=== PATIENT | male | born 1965 | race Caucasian/White ===

== ENCOUNTER → 2019-08-22 09:07 | Outpatient (BNVA) | payer OTHER, SELFPAY | PROVIDERS: PCP Family Medicine; Referring Provider Family Medicine; Visit Provider Specialist | DX: Z96.641 Presence of right artificial hip joint (principal); M25.552 Pain in left hip; M25.551 Pain in right hip | CPT/HCPCS: 73522 ==

== ENCOUNTER 2019-08-30 07:34 | Outpatient (REF) | payer OTHER, SELFPAY ==
[2019-08-30 08:26] LABS: Chol HDL Ratio 4.36 mg/dL (1.0-5.00); Cholesterol 157 mg/dL (0-200); Glucose 221 mg/dL (74-109); HDL Cholesterol 36 mg/dL (60-100); LDL Cholesterol Calculated 89 mg/dL (50-129); LDL HDL Ratio 2.47 RATIO (0.00-3.22); Triglycerides 161 mg/dL (0-150)
[2019-08-30 08:27] LABS: Estmated Average Glucose 283; Hemoglobin A1C 11.5 % (4.0-6.0)
[2019-08-30 19:06] LABS: Anion Gap 14.7 (5-19); Blood Urea Nitrogen 13 mg/dL (6-20); Calcium 9.7 mg/Dl (8.6-10.0); Carbon Dioxide 28 mmol/L (22-29); Chloride 102 mmol/L (98-107); Glomerular Filtration Rate 141.5 mL/min (90-130); Glucose 221 mg/dL (74-109); Potassium 4.7 mmol/L (3.5-5.1); Sodium 140 mmol/L (136-145)
== END 2019-08-30 07:35 | disposition home or self-care (01) ==
LOC: LAB 07:34
PROVIDERS: Family Provider Family Medicine; PCP Family Medicine; Visit Provider Family Medicine
DX: E11.65 Type 2 diabetes mellitus with hyperglycemia (principal)
CPT/HCPCS: 80048; 80061; 82947; 83036

== ENCOUNTER 2019-09-02 08:02 | Outpatient (CLI) | payer OTHER, SELFPAY ==
--- NOTE | 2019-09-02 08:00 | MR_ITS ---
WS: [id number] MRI LEFT hip, noncontrast. MRIs performed of the pelvis and hips with attention to the LEFT hip. HISTORY: LEFT hip pain. COMPARISON: 08/22/2019. Patient is status post RIGHT hip arthroplasty which is causing a moderate amount of metallic artifact through the RIGHT pelvis. Seen on the sagittal T1-weighted sequences of the LEFT hip is a linear area of marked hypointensity j ust beneath the cortical surface of the hip with a small amount of marrow edema along the surface of the femoral head. There is no displacement or fragmentation. Irregularity along the cortical surface of the femoral head. 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 Mild narrowing of the joint space. The labrum is intact. No significant joint effusion. No soft tissue around the hip. No acute fracture. Mild atrophy and fatty replacement of the muscles a round the RIGHT hip. MR/MR hip LT wo con* [id number] IMPRESSION: 1. Osteonecrosis LEFT femoral head. Moderate osteonecrosis with mild early fla ttening of the femoral head. 2. No loose fragment is identified. 3. Mild narrowing of the LEFT hip joint from osteoarthritis. 4. Prior RIGHT hip arthroplasty.
== END 2019-09-02 08:03 | disposition home or self-care (01) ==
LOC: RADSHAW 08:02
PROVIDERS: Family Provider Family Medicine; PCP Family Medicine; Visit Provider Specialist
DX: M87.852 Other osteonecrosis, left femur (principal); M16.12 Unilateral primary osteoarthritis, left hip; M25.552 Pain in left hip; Z96.642 Presence of left artificial hip joint
CPT/HCPCS: 73721

== ENCOUNTER 2019-09-19 08:56 | Outpatient (CLI) | payer OTHER, SELFPAY ==
--- NOTE | 2019-09-19 09:07 | NM_ITS ---
WS: [id number] NUCLEAR MEDICINE BONE SCAN Radiopharmaceutical: 26.4 Tc-99m MDP mCi IV Injection site: Right antecubital Postinjection imaging delay: 2 hr CLINICAL INFORMATION: HIP PAIN/ATTN:L HIP COMPARISON: MRI left hip September 02, 2019 FINDINGS: Recent MRI left hip reviewed Bone lesions: Postoperative changes right LUZ MARIA. Slightly decreased blood flow and blood pool correspon ding to the left femoral articular surface at the femoral head. Overall decreased uptake in the left femoral articular surface consistent with avascular necrosis as seen on the MRI. No significant hyper emia. Prior postoperative changes right LUZ MARIA. Normal blood flow and blood pool images. No periarticular upta ke to indicate infection or loosening. Right LUZ MARIA has a normal appearance. Normal activity in the righ t femoral shaft. Soft tissue contours: Normal. Kidneys: Normal. Other findings: Incidental degenerative type uptake involving both AC joints and both knees bilateral ly. Small amount of degenerative uptake involving the right ankle. NM/NM bone 3 phase 79177 IMPRESSION: 1. Postoperative changes right LUZ MARIA. No evidence of hyperemia or periarticular uptake to indicate infection or loosening. 2. Overall decreased blood flow and blood pool to the left femoral head articu lar surface consistent with avascular necrosis compatible with the recent MRI. 3. Incidental degenerative uptake described above.
== END 2019-09-19 08:57 | disposition home or self-care (01) ==
LOC: RAD 08:59
PROVIDERS: Family Provider Family Medicine; PCP Family Medicine; Visit Provider Specialist
DX: Z96.642 Presence of left artificial hip joint (principal)
CPT/HCPCS: 78315; A9561

== ENCOUNTER 2019-10-18 13:20 | Inpatient (IN) | payer OTHER, SELFPAY ==
[2019-10-12 08:27] VITALS: BMI 32.8
--- NOTE | 2019-10-12 08:54 | ANES.PREANE2 ---
Pre-Anesthetic Assessment Pre-Anesthetic Assessment: Height/Weight: Height 1.83 m Weight 109.769 kg Preop Diagnosis: AVN left hip Proposed Procedure: Operation Date: 10/18/19 07:00 Proposed Procedures p Total Hip Arthroplasty 33570 M87.052 M25.551(Left) - Jovita Luong MD Familial anesthetic complications: PONV Social: Social History: No alcohol and No tobacco Exam: Pre-Anes Outpt Exam: alert, oriented x 3, clear to auscultation bilaterally and regular rate & rhythm Airway: Cervical ROM: WNL MP: 2 Dentition: Chipped Pulmonary: Pulmonary: None reported CV/HEM: CV/HEM: HTN : : None reported Hepatic: Hepatic: None reported GI: GI: None reported Metabolic: Metabolic: DM and Morbid obesity Musc/skel: Comments: avascular necrosis of hip Neuropsych: Neuropsych: None reported Anesthetic Plan: ASA status: 3 Anesthesia: General Risk of > 500 ml blood loss (7ml/kg in children): No PFSH Anesthesia PFSH: Social History Smoking and tobacco status: never smoked Alcohol intake: never Data Anesthesia Cardiac Studies: No Data to Display
[2019-10-12 09:01] LABS: Add Urine Microscopic? NO
[2019-10-12 09:09] LABS: Basophils % 0.7 %; Eosinophils # 0.1 10^3/uL (0.0-0.8); Eosinophils % 1.3 %; Hematocrit 42.9 % (42.0-52.0); Hemoglobin 14.6 g/dL (11.7-16.6); Lymphocytes # 2.1 10^3/uL (0.8-4.8); Lymphocytes % 34.8 %; Mean Corpuscular Hemoglobin 27.6 pg (28.0-34.0); Mean Corpuscular Volume 81.1 fL (80-94); Mean Platelet Volume 10.3 fL (7.4-10.4); Monocytes # 0.4 10^3/uL (0.2-0.9); Monocytes % 7.2 %; Neutrophils # 3.4 10^3/uL (1.8-7.7); Neutrophils % 55.3 %; Nucleated Red Blood Cells % 0 %; Platelet Count 201 10^3/cmm (130-400); Red Blood Count 5.29 10^6/uL (4.1-5.3); Red Cell Distribution Width 11.8 % (12.1-15.1); White Blood Count 6.1 10^3/uL (4.0-10.0)
[2019-10-12 09:18] LABS: Alanine Aminotransferase 37 U/L (0-41); Albumin Level 4.4 g/dL (3.5-5.2); Alkaline Phosphatase 105 IU/L (40-130); Anion Gap 16.5 (5-19); Aspartate Amino Transferase 20 U/L (0-40); Blood Urea Nitrogen 16 mg/dL (6-20); Calcium 9.7 mg/dL (8.5-10.5); Carbon Dioxide 23 mmol/L (22-29); Chloride 102 mmol/L (98-107); Globulin 2.3 g/dL (1.3-4.6); Glomerular Filtration Rate 101.5 mL/min (90-130); Glucose 369 mg/dL (65-115); Potassium 4.5 mmol/L (3.5-5.1); Sodium 137 mmol/L (136-145); Total Bilirubin 0.7 mg/dL (0.15-1.2); Total Protein 6.7 g/dL (6.6-8.7)
[2019-10-12 09:35] LABS: Bilirubin Urine Neg (NEGATIVE); Blood Urine Neg (Negative); Glucose Urine UA 4+ (Normal); Ketones Urine Negative (Negative); Leukocyte Esterase Urine Negative (Negative); Nitrate Urine Negative (Negative); Protein Urine Neg (Negative); Urine Appearance Clear (CLEAR); Urine Color Yellow (Yellow); Urobilinogen Urine Norm (Negative); pH Urine 5 (5-7)
[2019-10-18] VITALS (23 sets, daily range): BP systolic 125–176; BP diastolic 70–93; PULSE 87–114; RESP 12–22; TEMP 36.1–37; O2SAT 92–99
--- NOTE | 2019-10-18 08:59 | ECG_ITS ---
Measurements Intervals Melissa Rate: 93 P: 32 IN: 154 QRS: -33 QRSD: 150 T: 31 QT: 385 QTc: 479 SINUS RHYTHM MARKED LEFT AXIS DEVIATION [QRS AXIS < -30] RIGHT BUNDLE BRANCH BLOCK [120+ ms QRS DURATION, UPRIGHT V1, 40+ ms S IN I/aVL/V4/V5/V6] No previous ECG available for comparison Electronically Signed On 10-19-2019 9:05:49 CDT by Conor Sanders M.D. [email or web address]
--- NOTE | 2019-10-18 09:02 | P.HPUD_ITS ---
Surgery/Procedure H&P Update DATE OF PROCEDURE: October 18, 2019 DATE H&P PERFORMED: 10/10/19 H&P UPDATE INFORMATION: I have reviewed H&P completed within last 30 days, No changes to prior documentation and H&P is in [facility] EMR on date indicated PREOP DIAGNOSIS: AVN left hip PLANNED PROCEDURE: Operation Date: 10/18/19 10:10 Proposed Procedures p Left Total Hip Arthroplasty 31550 M87.052 M25.551(Left) - Jovita Luong MD
--- NOTE | 2019-10-18 09:07 | ANES.PREANE2 ---
Pre-Anesthetic Assessment Pre-Anesthetic Assessment: Height/Weight: Height 1.83 m Weight 109.769 kg Preop Diagnosis: AVN left hip Proposed Procedure: Operation Date: 10/18/19 10:10 Proposed Procedures p Total Hip Arthroplasty 95195 M87.052 M25.551(Left) - Jovita Luong MD Familial anesthetic complications: None Was Beta Deyanira taken within 24 hours: N/A Last intake: NPO > 8 hrs (0000) no meds this morning Social: Social History: No alcohol and No tobacco Exam: Pre-Anes Outpt Exam: alert, oriented x 3, clear to auscultation bilaterally and regular rate & rhythm Airway: Cervical ROM: WNL MP: 3 Dentition: Chipped Pulmonary: Pulmonary: Sleep apnea (bipap) CV/HEM: CV/HEM: HTN : : None reported Hepatic: Hepatic: None reported GI: GI: None reported Metabolic: Metabolic: DM Musc/skel: Musc/skel: OA/DJD Comments: avascular necrosis - of multiple joints; unknown etiology, possibly due to steroids Neuropsych: Neuropsych: None reported Anesthetic Plan: ASA status: 2 Anesthesia: General Risk of > 500 ml blood loss (7ml/kg in children): No PFSH Anesthesia PFSH: Social History Smoking and tobacco status: never smoked Alcohol intake: never Data Anesthesia CBC & Chem 7: 10/12/19 08:46 10/12/19 08:46 Cardiac Studies: No Data to Display
[2019-10-18 09:27] LABS: Glucose Point of Care 238 mg/dL (70-110)
[2019-10-18] MEDS: vancomycin 1,000 MG in sodium chloride 0.9% 250 ML 250 MG IV ×2 (09:30→17:38)
[2019-10-18] MEDS: CELEcoxib 200 mg Capsule 400 MG PO (10:08)
[2019-10-18] MEDS: sodium chloride 0.9% 1,000 ML 30 ML IV (10:09)
[2019-10-18 10:11] LABS: Anion Gap 15.2 (5-19); Blood Urea Nitrogen 15 mg/dL (6-20); Calcium 9.3 mg/dL (8.5-10.5); Carbon Dioxide 21 mmol/L (22-29); Chloride 107 mmol/L (98-107); Glomerular Filtration Rate 141.5 mL/min (90-130); Glucose 261 mg/dL (65-115); Osmolality Calculated 293 mOsm/kg (285-295); Potassium 4.2 mmol/L (3.5-5.1); Sodium 139 mmol/L (136-145)
[2019-10-18] MEDS: vancomycin 1,000 MG SDV 1000 MG IRRIGATION (10:53)
[2019-10-18] MEDS: vancomycin 1,000 MG SDV 1000 MG XX (10:53)
--- NOTE | 2019-10-18 12:02 | SUR.OPER ---
5192-Family called in OPS waiting area given update on patient and progress of surgery
--- NOTE | 2019-10-18 13:11 | SUR.PHASEI ---
1308 PATIENT TO PACU AT THIS TIME FROM OR. RR EVEN AND UNLABORED, PLACED ON SIMPLE MASK AT 8L, SPO2 98%. DRESSING TO LEFT HIP, CDI. ABD PILLOW IN PLACE, LEFT PEDAL PULSE PRESENT AND MARKED. LANZA CATH DRAINING CLEAR, YELLOW URINE,SECURED TO LEFT LEG.
--- NOTE | 2019-10-18 13:34 | XR_ITS ---
WS: [id number] Pelvis, AP view, 10/18/2019 Clinical Data: Status post left total hip arthroplasty Comparison: AP pelvis and hips, 08/22/2019 Findings: A left hip arthroplasty has been performed. The components are in good position. The right hip arthro plasty remains unchanged. XR/XR pelvis 1-2V* [id number] Impression: 1. New left hip arthroplasty. 2. No change in right hip arthroplasty.
--- NOTE | 2019-10-18 14:30 | SUR.PHASEI ---
1416 PATIENT TO MED SURG AT THIS TIME. RR EVEN AND UNLABORED. A/OX3, DROWSY. DRESSING TO LEFT HIM, CDI, ABD PILLOW IN PLACE. LANZA CATH IN PLACE. TOLERATING ICE CHIPS.
--- NOTE | 2019-10-18 15:06 | P.OP_ITS ---
Operative Report Date of procedure: October 18, 2019 Pre-op Diagnosis: AVN left hip Post-op diagnosis: same Procedure Done: Left total hip arthroplasty utilizing the following components: The Nato total hip system with a Tritanium II hemispherical solid back shell size 58 with an F alpha code, an MDM cementless liner size 46 mm by F alpha code, and Accolade II 127? neck angle hip stem size 6 x 35 mm neck length with a 28 mm ceramic +0 mm femoral head and a congregational MDM X3 insert size 28 mm inner diameter by 46F. Specimens removed/disposition: Femoral head sent to pathology Pathology: other (Femoral head for confirmation of AVN) Surgeon: Jovita Luong Skimmer Scoop Operator: [facility] OR technicians Anesthesia: General (Intubated, ASA 2) Estimated blood loss (mL): 350 IV fluids (mL): 1,000 Urine output (mL): 400 Complications: None Condition: stable Disposition: PACU (Then to floor after recovery) Brief History: This 54-year-old gentleman was in his usual state of health when he began to have significant pain in his left hip. Previously, greater than 10 years ago, he underwent total of arthroplasty for AVN with Dr. Davis on the opposite right hip. He had similar symptoms in the left hip and MRI confirmed that he had AVN in this hip as well. It was interfering with his activities of daily living. He wished to proceed with total hip arthroplasty. Risks and complications were again discussed with him. He understood and wished to proceed. Procedure: Patient was brought to the operating theater. He was transferred to the operating room table and subsequently administered a general anesthetic intubated. Following administration of adequate anesthesia, the patient was placed in full lateral position and held in position with a pegboard. The patient's left lower extremity was then prepped and draped in usual fashion utilizing DuraPrep. It was draped free. Following prepping and draping a surgical pause was performed. At the time of surgical pause, we identified the site and side of surgery. We also identified the patient and preoperative surgical markings. Confirmation was made of equipment availability. Additionally, the patient's preoperative IV antibiotic, vancomycin 1 g, was confirmed as being given in a timely fashion and being the appropriate antibiotic. Following the surgical pause, an incision was made centering over the patient's greater trochanter continuing proximally and distally as necessary to allow access to the hip joint. Dissection continued through skin and soft tissues using a scalpel, and hemostasis was obtained using electrocautery. The tensor fascia meño was identified and incised longitudinally. Sciatic nerve was identified and protected throughout the surgical procedure. A Charnley U retractor was placed after the tensor fascia meño had been incised longitudinally, and the sciatic nerve had been identified. The piriformis muscle was identified and tagged. Piriformis muscle along with the remaining short external rotators were then incised from the posterior aspect of the hip joint. These were retracted posteriorly. The capsule was entered in a T-type fashion with the edges being tagged, and subsequently the hip was dislocated. Following hip dislocation, a femoral neck osteotomy was accomplished. We then evaluated the acetabulum. Labrum was removed. The femoral head was measured. The femur was retracted anteriorly as much as possible. Soft tissues were retracted and the labrum was removed. We then began reaming. Once the femoral head was removed, it was evaluated and was sent to pathology to confirm the diagnosis of avascular necrosis. We began reaming being careful to evaluate deepening as well. We reamed to a size 47 to allow for a size 58 acetabular shell. The acetabulum was impacted into position. It was noted that the acetabulum matched the bony anatomy. The cup was noted to seat nicely and had good fixation upon impact. The MDM cementless metal liner was then impacted into position with care being taken to assure that it was appropriately positioned. We confirmed that the acetabular insert was completely seated prior to addressing the femur. Attention was directed to the proximal femur. The proximal femur was lifted out of the wound with some difficulty. A canal finder was passed after the box chisel. The reamer was used to lateralize. We then began broaching. We broached sequentially and had excellent fit and fill with the size 6 Accolade II stem with a 127? neck angle. The neck length was 35 mm. A trial reduction was accomplished with a +0 mm femoral head. The patient had good stability with the +0 mm femoral head. With this in place, the hip was noted to be quite stable, and at that time, we felt that we had maintained appropriate leg length. The hip was stable at 90 degrees flexion with nearly 90 degrees of internal rotation and 30 degrees of adduction. Therefore, trial components were removed after the hip was dislocated. The size 6 Accolade II 127? neck angle hip stem with a 35 mm neck length was impacted into position without difficulty and onto this was placed the +0 mm femoral head in the congregational MDM insert for the 46F cementless liner. The stem was noted to seat nicely prior to placement of the femoral head. Once again, we had the above stability and felt that we had appropriate leg length. The wound was copiously irrigated with lactated Ringer's mixed with Betadine. The mixture was 500 cc of Ringer's with 20 cc of Betadine. At this time, with all components in appropriate position, the hip was reduced. Following reduction of the prosthesis once again, we confirmed the stability of the hip. Leg lengths were also felt to be partially restored. Being satisfied with the prosthesis, attention was directed to closure. Closure was accomplished with 0 Vicryl in the capsular tissues. Piriformis was reattached with 0 Vicryl as well. Tensor fascia meño was closed with 0 Vicryl in an interrupted fashion. The subcutaneous tissues were closed with 2-0 Monocryl. Vancomycin powder and Rolando-seal was placed into the wound as well. The skin was closed with a running 3-0 Monocryl followed by Exofin and Steri-S trips. This was covered with the Steri-Strips, Telfa, and Tegaderm. The patient was placed in an abduction pillow. He was returned the Recovery Room in a satisfactory condition and will be discharged to the floor for postoperative rehabilitation and pain management. There were no complications.
[2019-10-18] MEDS: oxyCODONE 5 mg IR Tab/Cap PO (15:09)
[2019-10-18] MEDS: acetaminophen 500 mg Tablet 1000 MG PO ×2 (15:09→21:42)
[2019-10-18] MEDS: CELEcoxib 200 mg Capsule PO (15:09)
--- NOTE | 2019-10-18 17:14 | PM.CONSULT ---
Providers/Reason For Consult Consulting Physican/Specialty*: Dr. Silva, hospitalist Reason for Consult*: Insulin-dependent diabetes mellitus type 2, obstructive sleep apnea, hypertension Requesting Physcian: Dr. Jovita Luong Attending Physician: Jovita Luong MD Primary Care Provider: Chanelle Pelayo MD History of Present Illness History of Present Illness Pedro Pantoja JR is a 54 year old male that presented to the hospital today for scheduled total hip arthroplasty. Patient reported that he had been feeling well prior to surgery other than hip pain. He denies any recent illness, no fevers or chills. Patient reports taking medication at home along with insulin to control his diabetes. Review of Systems Const: Denies: fever or chills Eyes: Denies: change in vision ENMT: Denies: nasal congestion Card: Denies: chest pain, palpitations or edema Resp: Denies: shortness of breath, productive cough or coughing up blood GI: Denies: abdominal pain, nausea, vomiting, diarrhea, constipation, blood in stool or black tarry stool : Denies: painful urination or blood in urine Musc: Denies: extremity pain or muscle cramps Skin/Breast: Denies: rash or new lesion Neuro: Denies: headache or dizziness Psych: Denies: anxiety or depression Endo: Denies: excessive urination or hot flashes Rajinder/Lymph: Denies: easy bruising or easy bleeding Meds/Allergies Home Medications and Allergies Home Medications Medication Instructions Recorded Confirmed Type aspirin 81 mg tablet,delayed 81 mg PO ONCE 08/23/19 10/18/19 History release metformin 1,000 mg tablet,extended 1,000 mg PO BID 08/23/19 10/18/19 History release 24hr tramadol 50 mg tablet 50 mg PO Q8H PRN 08/23/19 10/18/19 History simvastatin 20 mg tablet 20 mg PO QDAY #90 tab 08/29/19 10/18/19 Rx empagliflozin 25 mg tablet 25 mg PO QAM #30 tab 08/31/19 10/12/19 Rx quinapril 20 mg PO QPM 10/18/19 10/18/19 History Allergies Allergy/AdvReac Type Severity Reaction Status Date / Time Penicillins Allergy Unknown Unknown Verified 10/10/19 08:53 penicillamine Allergy ALGY-Rash Verified 10/10/19 08:53 Current Medications Current Medications Generic Name Dose Route Start Last Admin Trade Name Freq PRN Reason Stop Dose Admin Acetaminophen 1,000 mg 10/18/19 14:25 10/18/19 15:09 Tylenol PO 1,000 mg Q8H ALFREDO Administration Celecoxib 200 mg 10/18/19 14:25 10/18/19 15:09 Celebrex PO 200 mg Q12H ALFREDO Administration Oxycodone HCl 5 mg 10/18/19 14:25 10/18/19 15:09 Oxycodone Ir PO 5 mg Q4H PRN Administration MODERATE PAIN PFSH Acute PFSH: Medical History Avascular necrosis of hip Right Diabetes mellitus, type II HTN (hypertension) Surgical History (Updated 10/18/19 @ 17:17 by Kaylee Silva DO) History of tonsillectomy History of total hip replacement Right History of urologic surgery Reported dilation of ureter as a child Family History Family/Other Cancer Denies family history of Diabetes CAD (coronary artery disease) Clotting disorder Dementia Hyperlipidemia Psychiatric illness Chronic kidney disease (CKD) Suicide Anesthesia complication Bleeding disorder Family history of premature coronary artery disease Lung disease Hypertension Stroke Social History Smoking and tobacco status: never smoked Alcohol intake: never Vitals/I&O/Wt Last Vital Signs Temp 97.6 F 10/18/19 15:30 Pulse 108 H 10/18/19 15:48 Resp 18 10/18/19 15:48 BP 158/92 10/18/19 15:30 Pulse Ox 97 10/18/19 15:48 10/18/19 10/18/19 10/18/19 06:59 14:59 22:59 Intake Total 460 / 460 Output Total 750 / 750 400 / 1150 Balance -290 / -290 -400 / -690 Physical Exam Const: COMMON NORMALS: oriented x3 and alert GENERAL APPEARANCE: cooperative ORIENTATION/CONSCIOUSNESS: Yes awake, Yes oriented to person, Yes oriented to place and Yes oriented to time HENMT: COMMON NORMALS: normocephalic and head/scalp atraumatic HEAD & SCALP: normocephalic and atraumatic Eye: COMMON NORMALS: PERRL PUPIL: Yes PERRL Neck/C-Spine: COMMON NORMALS: supple GENERAL: Yes normal visual inspection Resp: COMMON NORMALS: normal respiratory effort and clear to auscultation bilaterally AUSCULTATION: clear to auscultation bilaterally, no rhonchi and no wheezes Cardio: COMMON NORMALS: regular rate, regular rhythm and no murmurs RATE: regular rate RHYTHM: regular rhythm GI: COMMON NORMALS: soft to palpation and non-tender INSPECTION: No abdominal distension AUSCULTATION: Yes normoactive bowel sounds PALPATION: Yes soft Extremity: NARRATIVE EXTREMITY EXAM: Postoperative dressing in place in the left hip Neuro: COMMON NORMALS: oriented x3, CN's II-XII intact bilaterally, moves all extremities and no focal motor deficits SENSORIUM/ORIENTATION: Yes alert, Yes oriented to person, Yes oriented to place and Yes oriented to time SPEECH: speech normal Psych: COMMON NORMALS: mental status grossly normal and cooperative Urinary Catheter Management^: Davis: Cath Placed During This Visit: yes Urinary Catheter Date of Insertion: 10/18/19 Urinary Catheter Time of Insertion: 10:10 A&P Assessment and plan (1) Avascular necrosis of left femoral head: Status post left total hip arthroplasty performed on 10/18/[address] Luong Follow-up with postoperative recommendations Aspirin 325 mg twice daily for VTE prophylaxis We will continue to monitor postop hemoglobin Pain control per orthopedic surgery Status: Acute Code(s): M87.052 - Idiopathic aseptic necrosis of left femur Additional A&P Information Hypertension with elevated blood pressure in the postoperative setting: We will restart home MANNIE inhibitor, hydralazine IV as needed for elevated blood pressures Hyperlipidemia: Continue on home statin Diabetes mellitus type 2, insulin-dependent with a last hemoglobin A1c of 11.5: Continue on sliding scale insulin, will place on Lantus 10 units at bedtime. Hold home metformin Consult Attestations Medical Necessity Statement: Patient requires hospitalization due to hypertension, obstructive sleep apnea requiring CPAP, poorly controlled diabetes mellitus with a last A1c of 11.5 with total hip arthroplasty. 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
[2019-10-18 17:15] LABS: Glucose Point of Care 277 mg/dL (70-110)
[2019-10-18] MEDS: iron polysaccharide complex 150 mg Capsule PO (17:37)
[2019-10-18] MEDS: chlorhexidine gluconate 0.12% Btl 473 mL 30 ML MUCOUS MEM ×2 (17:37→21:43)
[2019-10-18] MEDS: calcium carbonate 500 mg Chew Tablet 1000 MG PO (17:37)
[2019-10-18] MEDS: lisinopril 20 mg Tablet PO (17:37)
[2019-10-18] MEDS: sennosides-docusate Tablet 2 TAB PO (17:38)
[2019-10-18] MEDS: atorvastatin 40 mg Tablet 20 MG PO (21:43)
[2019-10-18] MEDS: insulin glargine 100 units/1 mL 10 UNIT SUBCUT (21:44)
[2019-10-18 21:56] LABS: Glucose Point of Care 247 mg/dL (70-110)
[2019-10-19] VITALS (7 sets, daily range): BP systolic 122–166; BP diastolic 78–89; PULSE 97–104; RESP 14–19; TEMP 36.4–37.6; O2SAT 95–97
[2019-10-19] MEDS: CELEcoxib 200 mg Capsule PO ×2 (03:04→14:18)
[2019-10-19 05:46] LABS: Basophils % 0.3 %; Eosinophils # 0.1 10^3/uL (0.0-0.8); Eosinophils % 0.8 %; Hematocrit 35.2 % (42.0-52.0); Hemoglobin 11.9 g/dL (11.7-16.6); Lymphocytes # 2.8 10^3/uL (0.8-4.8); Mean Corpuscular HGB Conc 33.8 g/dL (30.0-36.0); Mean Corpuscular Hemoglobin 27.9 pg (28.0-34.0); Mean Corpuscular Volume 82.6 fL (80-94); Mean Platelet Volume 10.6 fL (7.4-10.4); Monocytes # 1.3 10^3/uL (0.2-0.9); Monocytes % 12.6 %; Neutrophils # 5.7 10^3/uL (1.8-7.7); Neutrophils % 57.6 %; Nucleated Red Blood Cells % 0 %; Platelet Count 163 10^3/cmm (130-400); Red Blood Count 4.26 10^6/uL (4.1-5.3); Red Cell Distribution Width 12.3 % (12.1-15.1)
[2019-10-19 05:59] LABS: Anion Gap 12.8 (5-19); Blood Urea Nitrogen 13 mg/dL (6-20); Carbon Dioxide 24 mmol/L (22-29); Chloride 104 mmol/L (98-107); Glomerular Filtration Rate 118.4 mL/min (90-130); Glucose 256 mg/dL (65-115); Osmolality Calculated 289 mOsm/kg (285-295); Potassium 3.8 mmol/L (3.5-5.1); Sodium 137 mmol/L (136-145)
[2019-10-19] MEDS: acetaminophen 500 mg Tablet 1000 MG PO ×2 (06:21→14:18)
[2019-10-19 07:00] LABS: Glucose Point of Care 246 mg/dL (70-110)
[2019-10-19] MEDS: iron polysaccharide complex 150 mg Capsule PO (09:11)
[2019-10-19] MEDS: chlorhexidine gluconate 0.12% Btl 473 mL 30 ML MUCOUS MEM ×2 (09:12→11:45)
[2019-10-19] MEDS: aspirin 325 mg EC Tablet PO (09:12)
[2019-10-19] MEDS: cholecalciferol (vitamin D3) 1,000 unit Tablet 1000 UNIT PO (09:12)
[2019-10-19] MEDS: calcium carbonate 500 mg Chew Tablet 1000 MG PO (09:12)
[2019-10-19] MEDS: sennosides-docusate Tablet 2 TAB PO (09:12)
[2019-10-19] MEDS: fluticasone nasal spray 16gm Btl 1 SPRAY NASAL (09:12)
[2019-10-19] MEDS: lisinopril 20 mg Tablet PO (09:12)
[2019-10-19] MEDS: multivitamin therapeutic Tablet 1 TAB PO (09:12)
[2019-10-19] MEDS: oxyCODONE 5 mg IR Tab/Cap PO (11:07)
[2019-10-19 11:19] LABS: Glucose Point of Care 309 mg/dL (70-110)
--- NOTE | 2019-10-19 13:08 | ANE.PACU2 ---
 Inpatient post-anesthesia follow up: Airway intact: Yes Vital signs: Temperature 99.7 F Pulse Rate 104 Respiratory Rate 16 Blood Pressure 166/81 Pulse Oximetry 97 Oxygen Delivery Me thod Room Air Oxygen Flow Rate 2 Fraction of Inspir ed Oxygen Hydration adequate: Yes Nausea and vomiting: No Pain level: 2 Mental status: Baseline
--- NOTE | 2019-10-19 13:15 | PC.CHAP ---
Pastoral Care Encounter/Spiritual Assessment Type of Contact [] Declined turbine operator visit [] Patient/Family/Request visit [] Outpatient visit [] Follow-up visit [] Physician referral [] Code/Alert [x] Routine visit [] Staff referral [] Actively dying [] Patient sleeping [] Family support [] [] Out of room [] Palliative care [] [] Receiving care in room [] Pre-surgical visit [] Trauma [] Long length of stay [] ICU visit [] Other: Relational/Emotional Strength [x] Patient feels connected with others/family/visitors/staff [] Distress [] Loneliness/isolation [] Abandonment Spirituality of Patient [x] Person of Kacie [] Attends Pentecostal of their Kacie [] Believes in Prayer [] Reads Bible or Pentecostal materials [] There are Spiritual issues to be addressed Fundraising Director Interventions [x] Prayer [x] Active listening [x] Non-anxious presence [] Spiritual/emotional support [] Crisis/trauma care [] Spiritual counseling [] Bereavement support [] Provided bereavement packet [] Provided Bible/devotional materials [] Provided toy/stuffed animal, coloring book to patient or family member [] Provided Communion [] Anointing/[place] [] Salvation [x] Completed spiritual assessment [] Other: Impact on Illness or Injury [] Angry [] Fearful [] Anxious [] Often cries [] Exhaustion [] Unable to work [] Unable to attend zoroastrian [] Unable to walk/stand [] Unable to read [] Unable to drive [] Unable to eat/drink [] Unable to sleep [] Unable to be with family [] Patient intubated [] Other: Summary patient feeling better Time spent with patient 2 visitors 10 min
--- NOTE | 2019-10-19 13:32 | PM.DCS ---
Discharge Providers Date of Admission: 10/18/19 13:20 Date of Discharge: October 19, 2019 Attending Provider at Admission: Jovita Luong MD Attending Provider at Discharge: Jovita Luong MD Consults: Kaylee Silva DO Primary Care Provider: Chanelle Pelayo MD Diagnoses at Discharge Discharge Diagnosis (1) Avascular necrosis of left femoral head: Status: Acute (2) History of total hip replacement: Status: Acute Problem details: Right Qualifiers: Laterality: right Qualified Code(s): Z96.641 - Presence of right artificial hip joint Reason for Visit Reason for Visit: Reason For Visit: Avascular necrosis left femoral head hip pain Hospital Course Hospital Course: Patient was admitted on the same day of surgery. Patient underwent the following procedure: Left total hip arthroplasty utilizing the following components: The [place] total hip system with a Tritanium II hemispherical solid back shell size 58 with an F alpha code, an MDM cementless liner size 46 mm by F alpha code, and Accolade II 127? neck angle hip stem size 6 x 35 mm neck length with a 28 mm ceramic +0 mm femoral head and a anabaptist MDM X3 insert size 28 mm inner diameter by 46F. Secondary to his diabetes and other medical comorbidities including the use of BiPAP, the hospitalist service was consulted. He was seen and evaluated by Dr. Silva. Discharge Summary: Patient was admitted on the day of surgery. He did well that evening. He was seen by physical therapy on the first postoperative day and functioned well. Dressings were removed. The wound was benign. There was no evidence of infection, DVT, or other complication. 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 He notes his pain has improved compared to preoperative, but he does of course have surgical pain. Physical Exam Const: COMMON NORMALS: no apparent distress, average body habitus, oriented x3 and alert GENERAL APPEARANCE: cooperative and comfortable ORIENTATION/CONSCIOUSNESS: Yes awake HENMT: COMMON NORMALS: normocephalic and head/scalp atraumatic HEAD & SCALP: normocephalic and atraumatic Eye: GENERAL EYE: normal appearance of both eyes Chest: COMMONS NORMALS: inspection of chest normal Resp: COMMON NORMALS: normal respiratory effort EFFORT & INSPECTION: Yes able to speak in complete sentences and Yes symmetric chest movement Extremity: GENERAL: No calf tenderness LEFT LOWER EXTREMITY: Yes hip joint (Dressing is removed. Incision is benign.) Left hip: Yes inspection (There is minimal to no swelling.), Yes palpation (No pain to palpation.), Yes ROM (Not evaluated.) and Yes neurovascular exam (Intact including soft and nontender calves.) Neuro: COMMON NORMALS: oriented x3 SENSORIUM/ORIENTATION: Yes alert Psych: COMMON NORMALS: mental status grossly normal APPEARANCE: Yes grossly normal ATTITUDE: Yes calm and Yes engaged ATTENTION/CONCENTRATION: Yes attention grossly intact Skin: COMMON NORMALS: no rashes or lesions noted GENERAL SKIN EXAM: no rashes or lesions noted Urinary Catheter Management^: Davis: Cath Placed During This Visit: yes, but has since been removed by the nurse Reason for Continuing Indwelling Catheter: Decision to DC Catheter Urinary Catheter Date of Insertion: 10/18/19 Urinary Catheter Time of Insertion: 10:10 Date Urinary Catheter Removed: 10/19/19 Time Urinary Catheter Discontinued: 06:00 Discharge Data Data Completed and Pending: Completed Studies During Hospitalization Category Date Time Status XR pelvis 1-2V* 7 2170 Routine Exams 10/18/19 13:34 Completed Pending at discharge Category Date Time Status Complete Blood Co unt w/Auto AM LABS Lab 10/20/19 04:00 Ordered Pathology: Surgic al [PTH] Routine Pth 10/18/19 12:45 Received Labs from last 24 hours 10/19/19 10/19/19 10/19/19 11:14 06:20 04:59 WBC RBC Hgb Hct MCV MCH MCHC RDW Plt Count MPV Neut % (Auto) Lymph % (Auto) [place] % (Auto) Eos % (Auto) Baso % (Auto) Neut # (Auto) Lymph # (Auto) [place] # (Auto) Eos # (Auto) Baso # (Auto) Nucleated RBC % (a uto) Nucleated RBCs # Sodium 137 Potassium 3.8 Chloride 104 Carbon Dioxide 24 Anion Gap 12.8 BUN 13 Creatinine 0.7 GFR Calculation 118.4 Glucose 256 H POC Glucose 309 246 Calculated Osmolal ity 289 Calcium 9.0 10/19/19 10/18/19 10/18/19 04:59 21:34 17:09 WBC 10.0 RBC 4.26 Hgb 11.9 Hct 35.2 L MCV 82.6 MCH 27.9 L MCHC 33.8 RDW 12.3 Plt Count 163 MPV 10.6 H Neut % (Auto) 57.6 Lymph % (Auto) 28.0 [place] % (Auto) 12.6 Eos % (Auto) 0.8 Baso % (Auto) 0.3 Neut # (Auto) 5.7 Lymph # (Auto) 2.8 [place] # (Auto) 1.3 H Eos # (Auto) 0.1 Baso # (Auto) 0.0 Nucleated RBC % (a uto) 0 Nucleated RBCs # 0.0 Sodium Potassium Chloride Carbon Dioxide Anion Gap BUN Creatinine GFR Calculation Glucose POC Glucose 247 277 Calculated Osmolal ity Calcium Vitals: Last Vital Signs Temp 99.7 F H 10/19/19 11:21 Pulse 104 H 10/19/19 11:21 Resp 16 10/19/19 11:21 BP 166/81 10/19/19 11:21 Pulse Ox 97 10/19/19 11:21 Discharge Plan Discharge Patient Disposition: Home Health Service Condition: Stable Prescriptions: New celecoxib 200 mg Capsule 200 mg PO Q12H Qty: 30 RF: 0 oxycodone 5 mg Tablet 5 mg PO Q4H PRN (Reason: Moderate Pain) Qty: 30 RF: 0 aspirin 325 mg Tablet,Delayed Release (Dr/Ec) 325 mg PO DAILY 30 Days Qty: 30 RF: 0 acetaminophen 500 mg Tablet 1,000 mg PO Q8H 15 Days Qty: 90 RF: 0 Continued metformin 1,000 mg tablet extended release 24hr 1,000 mg PO BID RF: 0 tramadol 50 mg tablet 50 mg PO Q8H PRN (Reason: Pain) RF: 0 simvastatin 20 mg tablet 20 mg PO QDAY Qty: 90 RF: 0 Jardiance 25 mg tablet 25 mg PO QAM Qty: 30 RF: 3 quinapril 20 mg tablet 20 mg PO QPM RF: 0 Held aspirin 81 mg tablet,delayed release (DR/EC) 81 mg PO ONCE RF: 0 Hold Instructions: Resume on 11/19/19. Discharge Orders: Discharge Order (Routine); Ordered 10/19/19 Ordered By: Jovita Luong Referrals: [facility] [place] [facility] ([facility]) [Outside] Jovita Luong MD [Physician] - 11/02/19 11:15 am Discharge Diet: Advance as tolerated and Diabetic Discharge Activity: Increase activity as tolerated, Limit activity as instructed, Use walker/crutches as instructed and As per PT/OT instructions Activity Restrictions/Additional Instructions: Weightbearing as tolerated. Home therapy for gait training, strengthening, range of motion. Pursue routine total hip arthroplasty protocol. Discharge Attestations Time Spent in Discharge Care*: greater than 30 min Specific Discharge Activities: Specific discharge activities: educating patient and documenting/other paperwork Quality Metrics Clinical Quality Measures During this hospital stay, did patient experience: None Coding Level of Care Code Acute Airline Transport Pilot for Todd Fwkiah Exam Comprehensive Diagnoses Avascular necrosis of left femoral head M87.052 History of total hip replacement Z96.641 Laterality: right
--- NOTE | 2019-10-19 14:25 | PM.PN ---
Subjective Subjective: Interval history: Patient awake in bed at time of exam this morning. Denied any chest pain or shortness of breath. No abdominal pain. Reporting he is passing flatus, no nausea Vitals/I&O/Wt Last Vital Signs Temp 99.7 F H 10/19/19 14:18 Pulse 104 H 10/19/19 14:18 Resp 16 10/19/19 14:18 BP 166/81 10/19/19 14:18 Pulse Ox 97 10/19/19 14:18 10/18/19 10/19/19 10/19/19 22:59 06:59 14:59 Intake Total 250 / 710 250 / 960 460 / 460 Output Total 1900 / 2650 1100 / 3750 750 / 750 Balance -1650 / -1940 -850 / -2790 -290 / -290 Physical Exam Const: COMMON NORMALS: oriented x3 and alert GENERAL APPEARANCE: cooperative ORIENTATION/CONSCIOUSNESS: Yes awake, Yes oriented to person, Yes oriented to place and Yes oriented to time HENMT: COMMON NORMALS: normocephalic and head/scalp atraumatic HEAD & SCALP: normocephalic and atraumatic Eye: COMMON NORMALS: PERRL PUPIL: Yes PERRL Neck/C-Spine: COMMON NORMALS: supple GENERAL: Yes normal visual inspection Resp: COMMON NORMALS: normal respiratory effort and clear to auscultation bilaterally AUSCULTATION: clear to auscultation bilaterally, no rhonchi and no wheezes Cardio: COMMON NORMALS: regular rate, regular rhythm and no murmurs RATE: regular rate RHYTHM: regular rhythm GI: COMMON NORMALS: soft to palpation and non-tender INSPECTION: No abdominal distension AUSCULTATION: Yes normoactive bowel sounds PALPATION: Yes soft Extremity: NARRATIVE EXTREMITY EXAM: Postoperative dressing in place in the left hip Neuro: COMMON NORMALS: oriented x3, CN's II-XII intact bilaterally, moves all extremities and no focal motor deficits SENSORIUM/ORIENTATION: Yes alert, Yes oriented to person, Yes oriented to place and Yes oriented to time SPEECH: speech normal Psych: COMMON NORMALS: mental status grossly normal and cooperative Urinary Catheter Management^: Advis: Cath Placed During This Visit: yes, but has since been removed by the nurse Reason for Continuing Indwelling Catheter: Decision to DC Catheter Urinary Catheter Date of Insertion: 10/18/19 Urinary Catheter Time of Insertion: 10:10 Date Urinary Catheter Removed: 10/19/19 Time Urinary Catheter Discontinued: 06:00 Data : 10/19/19 04:59 10/19/19 04:59 A&P Assessment and plan (1) Avascular necrosis of left femoral head: Status post left total hip arthroplasty performed on 10/18/[address] Luong Follow-up with postoperative recommendations Aspirin 325 mg twice daily for VTE prophylaxis Status: Acute Code(s): M87.052 - Idiopathic aseptic necrosis of left femur Additional A&P Information Hypertension with elevated blood pressure in the postoperative setting: We will restart home MANNIE inhibitor, hydralazine IV as needed for elevated blood pressures Hyperlipidemia: Continue on home statin Diabetes mellitus type 2, insulin-dependent with a last hemoglobin A1c of 11.5: Continue on sliding scale insulin, will place on Lantus 10 units at bedtime. Hold home metformin Attestations Medical Necessity Statement*: Hospitalization status post total hip arthroplasty Coding Level of Care Code Acute Stem Processing Machine Operator for Todd Nelson Diagnoses Avascular necrosis of left femoral head M87.052
== END 2019-10-19 14:39 | disposition home health service (06) | DRG 470 ==
LOC: MEDSURG 13:29
PROVIDERS: Anesthesiology; Admitting Provider Specialist; Family Provider Family Medicine; PCP Family Medicine; Visit Provider Specialist
PROC: 0SRB0JA Replacement of Left Hip Joint with Synthetic Substitute, Uncemented, Open Approach (ICD-10-PCS; CPT 27130; principal; 2019-10-18 10:10)
DX: M87.852 Other osteonecrosis, left femur (principal); Z96.641 Presence of right artificial hip joint; Z79.82 Long term (current) use of aspirin; E11.9 Type 2 diabetes mellitus without complications; G47.33 Obstructive sleep apnea (adult) (pediatric); I10 Essential (primary) hypertension; Z79.4 Long term (current) use of insulin; E78.5 Hyperlipidemia, unspecified
CPT/HCPCS: 12345; 36415; 36416; 51702; 72170; 80048; 80053; 81003; 82962; 85025; 88304; 93005; 96365; 96372; 97110; 97116; 97161; 97165; C1776; J0131; J0330; J1815; J2001; J2370; J2405; J2704; J2710; J3010; J3370; J3490; J7030; J7050

== ENCOUNTER → 2019-11-02 11:24 | Outpatient (BNVA) | payer OTHER, SELFPAY | PROVIDERS: Family Provider Family Medicine; PCP Family Medicine; Visit Provider Specialist | DX: Z96.643 Presence of artificial hip joint, bilateral (principal) | CPT/HCPCS: 73502 ==

== ENCOUNTER 2019-11-23 13:39 | Outpatient (RCR) | payer OTHER, SELFPAY | END 2019-12-08 23:59 | disposition home or self-care (01) | LOC: SPT 13:39 | PROVIDERS: Absent Provider Specialist; Family Provider Family Medicine; PCP Family Medicine; Visit Provider Specialist | DX: Z47.1 Aftercare following joint replacement surgery (principal); Z96.642 Presence of left artificial hip joint | CPT/HCPCS: 97110; 97161 ==

== ENCOUNTER → 2019-11-30 12:20 | Outpatient (BNVA) | payer OTHER, SELFPAY | PROVIDERS: Family Provider Family Medicine; PCP Family Medicine; Visit Provider Specialist | DX: Z96.641 Presence of right artificial hip joint (principal); Z48.89 Encounter for other specified surgical aftercare | CPT/HCPCS: 73502 ==

== ENCOUNTER 2019-12-09 06:00 | Outpatient (RCR) | payer OTHER, SELFPAY | END 2020-01-08 23:59 | disposition home or self-care (01) | LOC: SPT 06:00 | PROVIDERS: Absent Provider Specialist; Family Provider Family Medicine; PCP Family Medicine; Visit Provider Specialist | DX: Z47.1 Aftercare following joint replacement surgery (principal); Z96.642 Presence of left artificial hip joint | CPT/HCPCS: 97110 ==

== ENCOUNTER → 2020-06-12 11:57 | Outpatient (BNVA) | payer OTHER, SELFPAY | PROVIDERS: Family Provider Family Medicine; PCP Family Medicine; Visit Provider Family Medicine | DX: E11.65 Type 2 diabetes mellitus with hyperglycemia (principal) | CPT/HCPCS: 80053; 80061; 83036; 85025 ==

== ENCOUNTER → 2020-07-09 10:23 | Outpatient (BNVA) | payer OTHER, SELFPAY | PROVIDERS: Family Provider Family Medicine; PCP Family Medicine; Visit Provider Internal Medicine | DX: Z01.812 Encounter for preprocedural laboratory examination (principal); Z20.828 Contact with and (suspected) exposure to other viral communicable diseases | CPT/HCPCS: 87635 ==

== ENCOUNTER 2020-07-13 09:09 | Day surgery (SDC) | payer OTHER, SELFPAY ==
[2020-07-12 17:23] VITALS: BMI 32.5
[2020-07-13] MEDS: sodium chloride 0.9% 1,000 ML 30 ML IV (09:46)
[2020-07-13 09:48] LABS: Glucose Point of Care 158 mg/dL (70-110)
--- NOTE | 2020-07-13 09:49 | W.PM.OPSUD ---
Surgery/Procedure H&P Update DATE OF PROCEDURE: July 13, 2020 DATE H&P PERFORMED: 07/03/20 PREOP DIAGNOSIS: t PLANNED PROCEDURE: Operation Date: 07/13/20 10:15 Proposed Procedures p Colonoscopy 50178 K63.5(Not Applicable) - Robin Julian MD
--- NOTE | 2020-07-13 09:50 | W.PM.OPSUD ---
Surgery/Procedure H&P Update DATE OF PROCEDURE: July 13, 2020 DATE H&P PERFORMED: 07/03/20 PREOP DIAGNOSIS: t PLANNED PROCEDURE: Operation Date: 07/13/20 10:15 Proposed Procedures p Colonoscopy 99949 K63.5(Not Applicable) - Robin Julian MD
--- NOTE | 2020-07-13 10:18 | ANES.PREANE2 ---
Pre-Anesthetic Assessment Pre-Anesthetic Assessment: Height/Weight: Height 1.83 m Weight 108.862 kg Preop Diagnosis: t Proposed Procedure: Operation Date: 07/13/20 10:15 Proposed Procedures p Colonoscopy 73919 K63.5(Not Applicable) - Robin Julian MD Was Beta Deyanira taken within 24 hours: N/A Last intake: Intake Last Liquid Date 07/12/20 Last Liquid Time 20:00 Last Solid Date 07/11/20 Last Solid Time 20:00 Social: Social History: No alcohol and No tobacco Exam: Pre-Anes Outpt Exam: alert, oriented x 3, clear to auscultation bilaterally and regular rate & rhythm Airway: Submandibular: WNL Cervical ROM: WNL MP: 2 Dentition: Full Pulmonary: Pulmonary: None reported CV/HEM: CV/HEM: HTN : : None reported Hepatic: Hepatic: None reported Metabolic: Metabolic: DM and Morbid obesity Musc/skel: Musc/skel: None reported Neuropsych: Neuropsych: None reported Anesthetic Plan: ASA status: 2 Anesthesia: MAC Risk of > 500 ml blood loss (7ml/kg in children): No Meds/Allergies Current Medications: Current Medications Generic Name Dose Route Start Last Admin Trade Name Freq PRN Reason Stop Dose Admin Sodium Chloride 1,000 mls @ 30 ml s/hr 07/13/20 09:30 07/13/20 09:46 Sodium Chloride 0.9% IV 30 mls/hr .Q24H ALFREDO Administration PFSH Anesthesia PFSH: Medical History (Updated 07/03/20 @ 13:46 by Robin Julian MD) Avascular necrosis of hip Bilateral Diabetes mellitus, type II HTN (hypertension) Surgical History (Updated 07/03/20 @ 13:03 by Socorro Sosa LPN) History of tonsillectomy History of total hip replacement Right History of urologic surgery Reported dilation of ureter as a child Status post total hip replacement, left Family History Family/Other Cancer Denies family history of Diabetes CAD (coronary artery disease) Clotting disorder Dementia Hyperlipidemia Psychiatric illness Chronic kidney disease (CKD) Suicide Anesthesia complication Bleeding disorder Family history of premature coronary artery disease Lung disease Hypertension Stroke Social History Smoking and tobacco status: never smoked Alcohol intake: never Data Anesthesia Other Labs: Laboratory Results - last 48 hr 07/13/20 09:44 POC Glucose 158 Cardiac Studies: No Data to Display
[2020-07-13 11:22] VITALS: BP 130/91; PULSE 81; RESP 18; TEMP 37.3; O2SAT 97
[2020-07-13 11:32] VITALS: BP 126/80; PULSE 77; RESP 18; TEMP 36.2; O2SAT 95
--- NOTE | 2020-07-13 11:49 | ANE.PACU2 ---
Inpatient post-anesthesia follow up: Airway intact: Yes Vital signs: Temperature 97.2 F Pulse Rate 77 Respiratory Rate 18 Blood Pressure 126/80 Pulse Oximetry 95 Oxygen Delivery Me thod Room Air Oxygen Flow Rate Fraction of Inspir ed Oxygen Hydration adequate: Yes Nausea and vomiting: No Pain level: 1 Mental status: Baseline
== END 2020-07-13 11:48 | disposition home or self-care (01) ==
PROVIDERS: PCP Family Medicine; Visit Provider Internal Medicine
PROC: 0DJD8ZZ Inspection of Lower Intestinal Tract, Via Natural or Artificial Opening Endoscopic (ICD-10-PCS; CPT 45378; principal; 2020-07-13 10:15)
DX: Z12.11 Encounter for screening for malignant neoplasm of colon (principal); Z79.82 Long term (current) use of aspirin; I10 Essential (primary) hypertension; E11.9 Type 2 diabetes mellitus without complications; Z80.0 Family history of malignant neoplasm of digestive organs; E66.01 Morbid (severe) obesity due to excess calories; Z68.32 Body mass index [BMI] 32.0-32.9, adult
CPT/HCPCS: 12345; 36416; 45378; 82962; J2704; J7030

== ENCOUNTER → 2020-10-03 09:25 | Outpatient (BNVA) | payer SELFPAY | PROVIDERS: PCP Family Medicine; Visit Provider Nurse Practitioner Family | DX: Z13.6 Encounter for screening for cardiovascular disorders (principal) | CPT/HCPCS: 80061; 82947; 83036 ==

== ENCOUNTER 2020-12-08 07:46 | Emergency (ER) | payer OTHER, SELFPAY ==
[2020-12-08 07:50] VITALS: BP 200/113; PULSE 92; RESP 18; TEMP 36.3; O2SAT 96; BMI 32.8
[2020-12-08] MEDS: tetanus-dipt-pertussis 0.5 mL SDV IM (08:03)
--- NOTE | 2020-12-08 08:05 | W.ED.WOUNDLC ---
HPI - Wound/Laceration General: Chief Complaint: Wound/Laceration Stated Complaint: RLE LAC Time Seen by Provider: 12/08/20 07:51 History of Present Illness: HPI narrative: 55-year-old male presents to the emergency room with complaint of a laceration to his right anterior tibia he slipped and fell and hit his lower tibia on a boat trailer. He landed on his buttocks. He denies any other injury. No loss of consciousness. No other injury to his back or upper extremities or head. Patient is diabetic. He stated he got a tetanus last year when he had a hip replacement however looking through the records I cannot find verification of we did offer him an tetanus update. Onset (ago): minute(s) Extremity Location: Right: lower leg Place: home Patient tetanus UTD: No (Unknown cannot verify) Context: accidental Associated symptoms: Reports pain; Denies chills, fever(s), foreign body sensation, inability to move, nausea, numbness, syncope or vomiting Review of Systems Const: Denies: fever(s) or chills ENMT: Denies: throat pain, ear or mastoid pain, nasal discharge or nasal congestion Card: Denies: syncope Resp: Denies: dyspnea, productive cough or non-productive cough GI: Denies: nausea or vomiting : Denies: flank pain, dysuria, urinary frequency or urinary urgency Skin/Breast: Denies: rash or pruritus PFSH ED PFSH: Medical History Avascular necrosis of hip Bilateral Diabetes mellitus, type II HTN (hypertension) Surgical History History of tonsillectomy History of total hip replacement Right History of urologic surgery Reported dilation of ureter as a child Status post total hip replacement, left Family History Family/Other Cancer Denies family history of Diabetes CAD (coronary artery disease) Clotting disorder Dementia Hyperlipidemia Psychiatric illness Chronic kidney disease (CKD) Suicide Anesthesia complication Bleeding disorder Family history of premature coronary artery disease Lung disease Hypertension Stroke Social History Smoking and tobacco status: never smoked Alcohol intake: never Physical Exam Const: COMMON NORMALS: no acute distress GENERAL APPEARANCE: cooperative and comfortable ORIENTATION/CONSCIOUSNESS: Yes awake, Yes oriented to person, Yes oriented to place and Yes oriented to time HENMT: COMMON NORMALS: normocephalic, atraumatic and hearing grossly normal bilaterally HEAD & SCALP: normocephalic and atraumatic Neck/C-Spine: COMMON NORMALS: no JVD Resp: COMMON NORMALS: normal respiratory effort, No retractions, No use of accessory muscles and clear to auscultation bilaterally AUSCULTATION: clear to auscultation bilaterally Cardio: COMMON NORMALS: no JVD, regular rate, regular rhythm and No murmurs present (Cardio) RATE: regular rate RHYTHM: regular rhythm GI: COMMON NORMALS: Soft to palpation and No hepatosplenomegaly present AUSCULTATION: Yes normoactive bowel sounds PALPATION: Yes Soft to palpation, No Tenderness to palpation present (GI), No Guarding due to palpation present (GI) and Yes No hepatosplenomegaly present Extremity: COMMON NORMALS: normal to inspection, capillary refill normal, no clubbing, cyanosis or edema, no calf tenderness and no pedal edema Neuro: SENSORIUM/ORIENTATION: Yes oriented to person, Yes oriented to place and Yes oriented to time Skin: COMMON NORMALS: no rashes or lesions noted GENERAL SKIN EXAM: no rashes or lesions noted Procedures Laceration Laceration 1: Site: lower extremity Side (If applicable): right Size (cm): 3 Description: linear Depth: simple, single layer Local Anesthetic: lidocaine 1% Amount of anesthesia used (mL): 2 Skin layer closed with: nylon Size (cm): 3-0 Number of sutures: 3 Technique: simple, interrupted Course Vital Signs: Vital signs: Vital Signs Temperature 97.3 F L 12/08/20 07:50 Pulse Rate 87 12/08/20 09:07 Respiratory Rate 18 12/08/20 07:50 Blood Pressure 200/113 12/08/20 07:50 Pulse Oximetry 95 12/08/20 09:07 MDM - Wound/Laceration MDM Narrative: Medical decision making narrative: Wound closed he did begin to have some bleeding after it was closed while he was in the waiting room nurses attended to it simply applied a better pressure dressing when the wound was closed to begin to accumulate a little blood underneath the skin this was expressed by the nurses and pressure dressing applied he did well after that we will discharge him home wound care instructions given this happened in the leg so put him on clindamycin as well as topical mupirocin sutures out in 10 to 14 days return if has problems Discharge Plan Discharge Patient Disposition: Home Clinical Impression: Laceration Condition: Stable Prescriptions: New mupirocin 2 % ointment 1 applic topical BID Qty: 15 RF: 0 clindamycin HCl 300 mg capsule 300 mg PO TID 7 Days Qty: 21 RF: 0 No Action metformin 1,000 mg tablet extended release 24hr 1,000 mg PO BID Qty: 180 RF: 1 aspirin [Ifeoma Aspirin] 325 mg tablet 325 mg PO DAILY RF: 0 multivitamin [Daily Multi-Vitamin] Tablet 1 tab PO DAILY RF: 0 B Complex Plus Vitamin C [id number] mg capsule 1 cap PO DAILY RF: 0 Galzin 25 mg (zinc) capsule 25 mg PO DAILY RF: 0 turmeric 400 mg capsule 400 mg PO DAILY RF: 0 hydrocodone-acetaminophen 5-325 mg tablet 1 tab PO Q8H PRN (Reason: pain) 10 Days Qty: 30 RF: 0 meclizine 25 mg tablet 25 mg PO TID PRN (Reason: dizziness) Qty: 30 RF: 0 cefdinir 300 mg capsule 300 mg PO BID Qty: 14 RF: 0 empagliflozin-linagliptin [Glyxambi] 25-5 mg tablet See Rx Instructions .ROUTE .COMPLEX Qty: 30 RF: 3 quinapril 40 mg tablet See Rx Instructions .ROUTE .COMPLEX Qty: 30 RF: 3 simvastatin 20 mg tablet See Rx Instructions .ROUTE .COMPLEX Qty: 90 RF: 0 Discharge Orders: Discharge ED (Routine); Ordered 12/08/20 Ordered By: Alexis Da Silva Referrals: Chanelle Pelayo MD [Primary Care Provider] - Discharge Diet: Usual diet Discharge Activity: Resume usual activity Patient Instructions: Opioid Safety Activity Restrictions/Additional Instructions: Plan mupirocin twice daily oral antibiotic 3 times daily for 7 days remove sutures in 10 days. Coding Level of Care Code ED Market Research Manager for Aarong Fwd Exam Comprehensive
[2020-12-08] MEDS: lidocaine 1% INJ 20 mL INJECTION (08:09)
[2020-12-08] MEDS: neomycin-poly-bacitracin oint 0.9 gm Pkt 1 APPLIC TOPICAL (09:00)
[2020-12-08 09:07] VITALS: PULSE 87; O2SAT 95
== END 2020-12-08 09:09 | disposition home or self-care (01) ==
PROVIDERS: Emergency Provider Family Medicine; PCP Family Medicine
DX: S81.811A Laceration without foreign body, right lower leg, initial encounter (principal); W01.198A Fall on same level from slipping, tripping and stumbling with subsequent striking against other object, initial encounter; Z79.82 Long term (current) use of aspirin; Z23 Encounter for immunization
CPT/HCPCS: 12002; 90471; 90715; 99282

== ENCOUNTER → 2021-03-20 08:59 | Outpatient (BNVA) | payer OTHER, SELFPAY | PROVIDERS: PCP Family Medicine; Visit Provider Nurse Practitioner Family | DX: E11.9 Type 2 diabetes mellitus without complications (principal); E78.2 Mixed hyperlipidemia; I10 Essential (primary) hypertension | CPT/HCPCS: 80053; 80061; 82306; 83036; 83721; 84443; 85025 ==

== ENCOUNTER → 2021-04-08 14:17 | Outpatient (BNVA) | payer OTHER, SELFPAY | PROVIDERS: PCP Family Medicine; Visit Provider Nurse Practitioner Family | DX: M25.551 Pain in right hip (principal); M25.552 Pain in left hip; Z96.643 Presence of artificial hip joint, bilateral | CPT/HCPCS: 73522; 73523 ==

== ENCOUNTER → 2022-04-22 08:08 | Outpatient (BNVA) | payer SELFPAY | PROVIDERS: Visit Provider Dermatology | DX: Z01.89 Encounter for other specified special examinations (principal); M25.551 Pain in right hip; Z80.0 Family history of malignant neoplasm of digestive organs; K63.5 Polyp of colon; E78.5 Hyperlipidemia, unspecified; I10 Essential (primary) hypertension; E11.9 Type 2 diabetes mellitus without complications ==

== ENCOUNTER → 2022-06-05 12:44 | Outpatient (BNVA) | payer OTHER, SELFPAY | PROVIDERS: PCP Nurse Practitioner Family; Visit Provider Nurse Practitioner Family | DX: M25.50 Pain in unspecified joint (principal); E55.9 Vitamin D deficiency, unspecified | CPT/HCPCS: 82306; 82607; 83735; 84443; 84550; 85025; 85651; 86038; 86140; 86200; 86431 ==

== ENCOUNTER → 2023-07-21 08:49 | Outpatient (BNVA) | payer SELFPAY | PROVIDERS: PCP Nurse Practitioner Family; Visit Provider Nurse Practitioner Family | DX: Z01.89 Encounter for other specified special examinations (principal) ==

== ENCOUNTER → 2023-10-01 09:08 | Outpatient (BNVA) | payer OTHER, SELFPAY | PROVIDERS: PCP Nurse Practitioner Family; Visit Provider Nurse Practitioner Family | DX: R05.9 Cough, unspecified (principal) | CPT/HCPCS: 71046; 87400; 87426 ==